=== PATIENT | male | born 1950 | race Caucasian/White ===

== ENCOUNTER 2018-07-01 14:45 | Emergency (ER) | payer OTHER ==
[~2018-07-01] VITALS: Ht 170.2 cm; Wt 74.8 kg
[2018-07-01] MEDS ORDERED: LIPITOR20 MG ORAL (15:00)
[2018-07-01] MEDS ORDERED: ASPIRIN81 MG ORAL (15:00)
[2018-07-01] MEDS ORDERED: ZANTAC150 MG ORAL (15:00)
[2018-07-01] MEDS ORDERED: traMADol 50mg tab ORAL ONE (15:30)
[2018-07-01] MEDS ORDERED: Ketorolac 60mg Inj IM ONE (15:30)
--- NOTE | 2018-07-01 15:38 | Emergency Room Report ---
History of Present Illness General Chief Complaint: Back Pain-No Injury Source: Patient Present Illness HPI 67-year-old male presents emergency department complaining of 9 out of 10 in severity constant and sharp low back pain that radiates across the lumbosacral area 5 days. Patient reports acute onset after attempting to lift/sheet his [id number] who is bedbound. Patient reports history of intermittent back pain in the past usually followed by acute strenuous activity. Patient states that he has been using salon positive, taking Advil and wearing a back brace for 1 week with no improvements. Patient denies urinary retention, incontinence , or paresthesias. Denies fevers or chills. No appreciable trauma/fall otherwise. Allergies: Coded Allergies: No Known Allergies (Unverified , 07/01/18) Patient History Past Medical History: see triage record Past Surgical History: none Pertinent Family History: none Reviewed Nursing Documentation: PMH: Agreed; PSxH: Agreed Nursing Documentation-PMH Past Medical History: No History, Except For Review of Systems All Other Systems: negative except mentioned in HPI Physical Exam Vital Signs Date Time Temp Pulse Resp B/P (MAP) Pulse Ox O2 Delivery O2 Flow Rate FiO2 07/01/18 14:53 97.7 62 18 162/84 98 Room Air 97.7 Sp02 EP Interpretation: reviewed, normal General Appearance: alert, GCS 15, non-toxic, moderate distress Head: normocephalic, atraumatic Eyes: bilateral eye normal inspection, bilateral eye PERRL ENT: hearing grossly normal, normal voice Neck: full range of motion, no bony tend Respiratory: lungs clear, normal breath sounds, speaking full sentences Cardiovascular #1: regular rate, rhythm, no edema Gastrointestinal: non tender, soft Musculoskeletal: back normal, gait/station normal, normal range of motion, tender - TTP to the paraspinal musculature in the lumbosacral area bilaterally with majority on the right side. Pt. is ambulatory, no midline localized spinous process ttp, no step offs or obvious deformities. Neurologic: alert, oriented x3, responsive, motor strength/tone normal, sensory intact, normal gait, speech normal, grossly normal Psychiatric: judgement/insight normal Skin: normal color, no rash, warm/dry, well hydrated Lymphatic: no adenopathy Medical Decision Making PA Attestation Dr. Sweeney is my supervising physician whom pt. management has been discussed with. Diagnostic Impression: Primary Impression: Back pain Qualified Codes: M54.5 - Low back pain Additional Impression: Lumbosacral pain ER Course 67-year-old male presents emergency department complaining of 9 out of 10 in severity constant and sharp low back pain that radiates across the lumbosacral area 5 days. Patient reports acute onset after attempting to lift/sheet his [id number] who is bedbound. Patient reports history of intermittent back pain in the past usually followed by acute strenuous activity. Patient states that he has been using salon positive, taking Advil and wearing a back brace for 1 week with no improvements. Patient denies urinary retention, incontinence , or paresthesias. Denies fevers or chills. No appreciable trauma/fall otherwise. Ddx considered: epidural abscess, fracture, sprain/strain, meningitis, spinal chord injury, sciatica, cauda equina, Pyelonephritis, renal calculi just to name a few. Vital signs reviewed and are WNL during ED visit. Pt. is afebrile with no signs of infection No new symptoms, and denies recent trauma. No saddle anesthesia noted, Pt. denies incontinence Neurovascular is intact ROM is limited due to pain Mild Tenderness to palpation to paraspinal muscles of the lower back with midline tenderness. Pt. describes pain today as moderate and radiates across the lower back. ORDERS: none warranted at this time. INTERVENTIONS: - 20mg IM Toradol -Tramadol PO D/W Pt. that for further pain management is it recommended to consult PCP or. A provider who can Order further advanced imaging such as MRI as needed with close follow up. DISCHARGE: At this time pt. is stable for d/c to home. Will provide printed patient care instructions, and any necessary prescriptions. Care plan and follow up instructions have been discussed with the patient prior to discharge. Last Vital Signs Date Time Temp Pulse Resp B/P (MAP) Pulse Ox O2 Delivery O2 Flow Rate FiO2 07/01/18 15:22 97.7 07/01/18 14:53 62 18 162/84 98 Room Air Disposition: HOME, SELF-CARE Condition: Stable Scripts Methocarbamol* (ROBAXIN*) 500 Mg Tablet 1000 MG PO TID, #42 TAB 0 Refills Prov: Marge Calle 07/01/18 Lidocaine (Lidoderm) 1 Each Adh..patch 1 PATCH TOPIC DAILY, #30 PATCH 0 Refills Patch(es) may remain in place for up to 12 hours in any 24-hour period. Prov: Marge Calle 07/01/18 Ibuprofen* (MOTRIN*) 600 Mg Tablet 600 MG ORAL THREE TIMES A DAY, #15 TAB 0 Refills Prov: Marge Calle 07/01/18 Patient Instructions: Back Pain, Adult Additional Instructions: Take medications as directed. Follow up with a Primary Care Provider in 3-5 days, even if your symptoms have resolved. --Please review list of primary care clinics, if you do not already have a primary care provider Return sooner to ED if new symptoms occur, or current symptoms become worse. Do not drink alcohol, drive, or operate heavy machinery while taking [ ] as this may cause drowsiness. - Please note that this Emergency Department Report was dictated using [employer] stitcher technology software, occasionally this can lead to erroneous entry secondary to interpretation by the dictation equipment. Marge Calle Jul 01, 2018 15:38
[2018-07-01] MEDS ORDERED: LIDODERM700 M1 TOPIC (16:13)
[2018-07-01] MEDS ORDERED: ROBAXIN500 MG PO (16:13)
[2018-07-01] MEDS ORDERED: IBUPROFEN600 MG ORAL (16:13)
[2018-07-01 16:17] VITALS: BP 158/84
[2018-07-01 16:24] VITALS: BP 158/84
== END 2018-07-01 16:24 | disposition home or self-care (01) ==
LOC: EMR 15:20
DX: M54.5 Low back pain (principal); X50.0XXA Overexertion from strenuous movement or load, initial encounter; Y92.019 Unspecified place in single-family (private) house as the place of occurrence of the external cause
CPT/HCPCS: 96372; 99283